=== PATIENT | male | born 1970 | race Two or more races ===

== ENCOUNTER 2025-04-18 21:29 | Emergency (ER) | payer BC, OTHER ==
[~2025-04-18] VITALS: Ht 177.8 cm; Wt 97.7 kg
--- NOTE | 2025-04-18 21:58 | ED.PDOC ---
History of Present Illness HPI Comments This is a 55-year-old, obese male that is BIBA from home with c/o 10/10 nonradiating, left-sided chest pain and shortness of breath. Symptoms are endorsed to have began at around 1630, this evening, unprovoked. Patient was found hypertensive, with a systolic rate in the 170's, and a blood glucose of 138 on scene. En route, he was given 324mg ASA and 0.4mg NTG, with pain improving to a 4/10. Patient still endorses on having symptoms upon arrival. He reports only family history of HTN. Denies any palpitations, nausea, vomiting, fever, chills, or further associated symptoms. Chief Complaint: Chest Pain Time Seen by MD: 21:45 Reviewed Notes: Nurses Notes, Parts Designer Notes, Medications, Allergies Allergies: Coded Allergies: NO KNOWN ALLERGIES (Unverified , 04/18/25) Information Source: Patient, Emergency Med Personnel Mode of Arrival: EMS Severity: Moderate Timing: Hours Duration: Since onset Prehospital treatment: 12 Lead EKG, ASA, Medical Affairs Director, NTG Past Medical History PAST MEDICAL HISTORY: Denies Surgical History: Denies all surgeries Family History Family History: Family hx of HTN Social History Smoker: Non-Smoker Alcohol: Denies ETOH Use Drugs: Denies Drug Use Lives In: Home All Other Systems: Reviewed and Negative (Comprehensive systems review obtained and negative except for what is stated in the HPI.) Physical Exam General Appearance: Mild Distress, Obese HEENT: Normal ENT Inspection, Pharynx Normal, TMs Normal Neck: Full Range of Motion, Non-Tender, Normal, Normal Inspection Respiratory: Chest Non-Tender, Lungs Clear, No Accessory Muscle Use, No Respiratory Distress, Normal Breath Sounds Cardiovascular: No Edema, No JVD, No Murmur, No Gallop, Normal Peripheral Pulses, Regular Rate/Rhythm Breast Exam: Deferred Gastrointestinal: No Organomegaly, Non Tender, No Pulsatile Mass, Normal Bowel Sounds, Soft Genitalia: Deferred Pelvic: Deferred Rectal: Deferred Extremities: No calf tenderness, Normal capillary refill, Normal inspection, Normal range of motion, Non-tender, No pedal edema Musculoskeletal : Apperance: Normal Neurologic: Alert, transplant immunologist II-XII nml as Tested, No Motor Deficits, Normal Affect, Normal Mood, No Sensory Deficits Cerebellar Function: Normal Reflexes: Normal Skin: Dry, Normal Color, Warm Lymphatic: No Adenopathy Was a procedure done? Was a procedure done?: No EKG EKG : Pulse Rate (adult): 71 [place]: Normal Cardiac Rhythm: NSR Block: None Hypertrophy: None ST: Normal Differential Dx Considerations may include: MO, PE, ACS, URI, PNA, anxiety, angina, gastritis, costochondritis, hypertension new onset, hypertensive emergency, among others X-Ray, Labs, Meds, VS Vital Signs Date Time Temp Pulse Resp B/P (MAP) Pulse Ox O2 Delivery O2 Flow Rate FiO2 04/19/25 03:22 98.1 68 20 125/80 (95) 100 98.1 04/19/25 03:17 98.7 65 20 130/74 (92) 97 98.7 04/19/25 03:16 65 20 97 Room Air 04/19/25 02:05 98.0 65 20 129/72 (91) 100 98.0 04/19/25 00:30 98.3 63 20 129/68 (88) 96 98.3 04/19/25 00:27 62 04/18/25 22:25 65 04/18/25 21:58 71 04/18/25 21:34 98.1 84 16 127/82 (97) 96 98.1 04/18/25 21:31 71 Lab Test 04/18/25 21:50 Range/Units White Blood Count 12.2 H 4.4-10.8 10^3/uL Red Blood Count 5.16 4.5-5.90 10^6/uL Hemoglobin 15.5 13.5-17.5 g/dL Hematocrit 46.3 41.0-53.0 % Mean Corpuscular Volume 89.7 80.0-100.0 fL Mean Corpuscular Hemoglobin 30.0 28.0-32.0 pg Mean Corpuscular Hemoglobin Concent 33.4 32.0-36.0 g/dL Red Cell Distribution Width 14.0 11.8-14.3 % Platelet Count 194 140-450 10^3/uL Mean Platelet Volume 9.0 6.9-10.8 fL Neutrophils (%) (Auto) 74.7 37.0-80.0 % Lymphocytes (%) (Auto) 14.6 10.0-50.0 % Monocytes (%) (Auto) 8.7 0.0-12.0 % Eosinophils (%) (Auto) 1.5 0.0-7.0 % Basophils (%) (Auto) 0.5 0.0-2.0 % Neutrophils # (Auto) 9.1 H 1.6-8.6 10 ^3/uL Lymphocytes # (Auto) 1.8 0.4-5.4 10 ^3/uL Monocytes # (Auto) 1.1 0-1.3 10 ^3/uL Eosinophils # (Auto) 0.2 0-0.8 10 ^3/uL Basophils # (Auto) 0.1 0-0.2 10 ^3/uL Nucleated Red Blood Cells 0.1 % Sodium Level 142 136-145 mmol/L Potassium Level 3.9 3.5-5.1 mmol/L Chloride Level 110 H 98-107 mmol/L Carbon Dioxide Level 23 20-31 mmol/L Anion Gap 9 5-15 Blood Urea Nitrogen 14 9-23 mg/dL Creatinine 1.20 0.700-1.30 mg/dL Glomerular Filtration Rate Calc 71 >90 mL/min BUN/Creatinine Ratio 11.7 10.0-20.0 Serum Glucose 123 H 74-106 mg/dL Calcium Level 9.9 8.7-10.4 mg/dL Total Bilirubin 0.9 0.2-1.0 mg/dL Aspartate Amino Transferase (AST) 19 13-40 U/L Alanine Aminotransferase (ALT) 36 7-40 U/L Alkaline Phosphatase 89 46-116 U/L Troponin I High Sensitivity 5 </=54 ng/L Total Protein 7.0 5.7-8.2 g/dL Albumin 4.5 3.2-4.8 g/dL [place] [id number] Ph: [phone] DIAGNOSTIC IMAGING Diagnostic Imaging Report : [id number] Signed PATIENT: DANIEL HAMPTON ACCT: [id number] UNIT: [id number] : 1970 LOC: ER ROOM / BED: / AGE / SEX: 55 / M ADM STATUS: REG ER SERVICE [id number] ORDERING PHYSICIAN: KENNEY TARANGO MD PROCEDURE(s): CXRP - CHEST PORTABLE REASON: chest pain ORDER NUMBER(s): [id number], ACCESSION NUMBER(s): [id number] CHEST RADIOGRAPH Indication: chest pain Technique: Single frontal view of the chest was obtained Comparison: None Findings/ IMPRESSION: Low lung volumes with bronchovascular crowding. Bibasilar atelectasis with superimposed infection not excluded. No pneumothorax. No pleural effusions. ATED BY: JANE YADAV DO DICTATED DATE/TIME: 04/19/259 SIGNED BY: JANE YADAV DO SIGNED DATE/TIME: 04/19/259 CC: Time of 1ST Reevaluation: 22:15 Reevaluation 1ST: Unchanged Patient Education/Counseling: Diagnosis, Treatment Family Education/Counseling: No Family Present Departure 1 Departure Time of Disposition: 00:15 Impression: Primary Impression: Chest pain Disposition: 01 HOME / SELF CARE / HOMELESS Condition: Stable Discharged With: Self Critical Care Note Critical Care Time?: No Stability Stability form required: No Heart Score Heart Score: Heart Score Response (Comments) Value History Slightly Suspicious 0 EKG Normal 0 Age 45-64 1 Risk Factors No known risk factors 0 Troponin Normal limit 0 Total 1 I personally scribed for KENNEY TARANGO MD ([email or web address]) on 04/18/25 at 21:58. Electronically submitted by Carl Cunningham ([email or web address]). I personally scribed for KENNEY TARANGO MD ([email or web address]) on 04/19/25 at 00:35. Electronically submitted by Carl Cunningham ([email or web address]). KENNEY TARANGO MD April 18, 2025 21:58
[2025-04-18 22:11] LABS: Basophils # (auto) 0.1 10 ^3/uL (0-0.2); Basophils % (auto) 0.5 % (0.0-2.0); Eosinophils # (auto) 0.2 10 ^3/uL (0-0.8); Eosinophils % (auto) 1.5 % (0.0-7.0); Hematocrit 46.3 % (41.0-53.0); Hemoglobin 15.5 g/dL (13.5-17.5); Lymphocytes # (auto) 1.8 10 ^3/uL (0.4-5.4); Lymphocytes % (auto) 14.6 % (10.0-50.0); Mean Corpuscular Hgb Conc. 33.4 g/dL (32.0-36.0); Mean Corpuscular Volume 89.7 fL (80.0-100.0); Monocytes # (auto) 1.1 10 ^3/uL (0-1.3); Monocytes % (auto) 8.7 % (0.0-12.0); Neutrophils # (auto) 9.1 10 ^3/uL (1.6-8.6); Neutrophils % (auto) 74.7 % (37.0-80.0); Nucleated Red Blood Cells % 0.1 %; Platelet Count (auto) 194 10^3/uL (140-450); Red Blood Cells 5.16 10^6/uL (4.5-5.90); White Blood Cell 12.2 10^3/uL (4.4-10.8)
[2025-04-18 22:23] LABS: Alanine Aminotransferase 36 U/L (7-40); Albumin 4.5 g/dL (3.2-4.8); Alkaline Phosphatase 89 U/L (46-116); Anion Gap 9 (5-15); Aspartate Aminotransferase 19 U/L (13-40); BUN/Creatinine Ratio 11.7 (10.0-20.0); Blood Urea Nitrogen 14 mg/dL (9-23); Calcium 9.9 mg/dL (8.7-10.4); Carbon Dioxide 23 mmol/L (20-31); Potassium 3.9 mmol/L (3.5-5.1); Sodium 142 mmol/L (136-145)
[2025-04-18 22:24] LABS: Bilirubin, Total 0.9 mg/dL (0.2-1.0)
[2025-04-18 22:54] LABS: Chloride 110 mmol/L (98-107); Glucose 123 mg/dL (74-106)
--- NOTE | 2025-04-19 00:12 | DVH ---
CHEST RADIOGRAPH Indication: chest pain Technique: Single frontal view of the chest was obtained Comparison: None Findings/ IMPRESSION: Low lung volumes with bronchovascular crowding. Bibasilar atelectasis with superimposed infection not excluded. No pneumothorax. No pleural effusions.
[2025-04-19 03:22] VITALS: BP 125/80; TEMP 98.1
[2025-04-19 06:58] VITALS: PULSE 68; RESP 16; O2SAT 99
--- NOTE | 2025-04-21 11:09 | ECG ---
[facility] Test Date: 2025-04-18 Test Time: 21:31:08 Pat Name: DNAIEL HAMPTON Department: ED Room: Gender: M Victim Witness Administrator: GRACIE : 1970 Requested By: KENNEY TARANGO Order Number: [id number] Reading MD: Bao Eagle Measurements Intervals [place] Rate: 71 P: 20 AR: 162 QRS: -43 QRSD: 98 T: 17 QT: 372 QTc: 405 Interpretive Statements Sinus rhythm Probable left atrial enlargement Left axis deviation Abnormal R-wave progression, early transition Electronically Signed On 04-24-2025 11:24:30 PDT by Bao Eagle Please click the below link to view image of tracing.
--- NOTE | 2025-04-21 12:26 | ECG ---
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
--- NOTE | 2025-04-21 12:26 | ECG ---
[facility] Test Date: 2025-04-19 Test Time: 00:27:03 Pat Name: DANIEL HAMPTON Department: ER Room: Gender: M Underwriting Support Specialist: GRACIE : 1970 Requested By: KENNEY TARANGO Order Number: [id number] Reading MD: Bao Eagle Measurements Intervals [place] Rate: 62 P: 35 CT: 162 QRS: -16 QRSD: 96 T: 20 QT: 380 QTc: 386 Interpretive Statements Sinus rhythm Probable left atrial enlargement Borderline left axis deviation Abnormal R-wave progression, early transition Electronically Signed On 04-24-2025 11:25:37 PDT by Bao Eagle Please click the below link to view image of tracing.
== END 2025-04-19 04:30 | disposition home or self-care (01) ==
LOC: EDBD 21:29 → ER 21:29
DX: R07.89 Other chest pain (principal); R06.02 Shortness of breath; E66.9 Obesity, unspecified
CPT/HCPCS: 36415; 71045; 80053; 84484; 85025; 93005